=== PATIENT | male | born 1950 | race Caucasian/White ===

== ENCOUNTER 2020-09-22 03:20 | Outpatient (CLI) | payer OTHER, SELFPAY ==
[2020-09-22 10:57] LABS: Source Nasal/Nares
[2020-09-22 12:54] LABS: COVID-19 PCR Negative (Negative)
== END 2020-09-22 03:21 | disposition home or self-care (01) ==
LOC: LBO 03:20
PROVIDERS: PCP Internal Medicine Cardiovascular Disease; Visit Provider Family Medicine
DX: Z20.822 Contact with and (suspected) exposure to COVID-19 (principal); Z01.818 Encounter for other preprocedural examination
CPT/HCPCS: 87635

== ENCOUNTER 2020-10-12 04:14 | Outpatient (CLI) | payer OTHER, SELFPAY ==
[2020-10-12] MEDS: Albuterol HFA 18 GM 200 PUFF INH IH (15:39)
[2020-10-12] MEDS: Inhaler, Assist Device 1 EACH MC (15:39)
--- NOTE | 2020-10-13 16:15 | W.PFT ---
Date of service: 10/12/20 Time of Service: 02:51 Pulmonary Function Test Result Interpretation Spirometry: Spirometry shows no evidence of obstructive airways disease, no bronchodilator response. Impression Normal spirometry Clinical Correlation therefore is recommended.
== END 2020-10-12 04:15 | disposition home or self-care (01) ==
LOC: RT 04:14
PROVIDERS: PCP Internal Medicine Cardiovascular Disease; Visit Provider Orthopaedic Surgery
DX: C32.9 Malignant neoplasm of larynx, unspecified (principal); C34.90 Malignant neoplasm of unspecified part of unspecified bronchus or lung
CPT/HCPCS: 94060